=== PATIENT | female | born 1990 | race Caucasian/White ===

== ENCOUNTER 2016-06-26 02:51 | Emergency (ER) | payer MEDICAID ==
[~2016-06-26] VITALS: Ht 167.6 cm; Wt 52.6 kg
--- NOTE | 2016-06-26 03:00 | NUR ---
To bed 6 a 26 yo female bibself c/o frequent urination, dysuria x1 day. Patient is aaox4, ambulatory, afebrile. VSS. Nondiaphoretic. Initiated comfort measures. Awaiting for er md mendes.
[2016-06-26 03:49] LABS: APPEARANCE,URINE CLOUDY (CLEAR); BILIRUBIN,URINE NEGATIVE (NEGATIVE); BLOOD, URINE 3+ Ery/uL (NEGATIVE); COLOR,URINE RED (YELLOW); KETONES,URINE TRACE (NEGATIVE); LEUKOCYTE ESTERASE ,URINE 2+ (NEGATIVE); NITRITE, URINE POSITIVE (NEGATIVE); PH,URINE 5.5 (5.0-8.0); PROTEIN,URINE 3+ mg/dl (NEGATIVE); UGLUCOSE NEGATIVE (NEGATIVE)
[2016-06-26 03:56] LABS: ADD URINE CULTURE YES; BACTERIA,URINE Few /HPF (None Seen); RBC,URINE TOO NUMEROUS TO COUN /HPF (0-2); SQUAMOUS EPITHELIAL CELL,UR Few /HPF (None Seen); WBC,URINE 21-50 /HPF (0-3)
[2016-06-26 03:57] LABS: PREGNANCY TEST URINE QUAL NEGATIVE (NEGATIVE)
[2016-06-26] MEDS ORDERED: NITROFURANTOIN/NITROFURAN MAC 100 MG CAPSULE ONE (04:09)
[2016-06-26] MEDS ORDERED: PHENAZOPYRIDINE HCL 200 MG TABLET ONE (04:09)
--- NOTE | 2016-06-26 04:20 | NUR ---
Patient discharged to home in stable condition. Written and verbal after care instructions given. Patient verbalizes understanding of instruction. Patient is ambulatory with steady gait.
[2016-06-26] MEDS ORDERED: NITROFURANTOIN/NITROFURAN MAC 100 MG CAPSULE PO ONE (04:30)
[2016-06-26] MEDS ORDERED: PHENAZOPYRIDINE HCL 200 MG TABLET PO ONE (04:30)
[2016-06-26 04:40] VITALS: BP 118/68
== END 2016-06-26 04:40 | disposition home or self-care (01) ==
LOC: ER 02:51
DX: N30.90 Cystitis, unspecified without hematuria (principal); Z88.8 Allergy status to other drugs, medicaments and biological substances
CPT/HCPCS: 81000-TC; 84703-TC; 87086-TC; 87186-TC; A4606; Z7610

== ENCOUNTER 2016-10-02 22:10 | Emergency (ER) | payer MEDICAID ==
[~2016-10-02] VITALS: Ht 167.6 cm; Wt 52.2 kg
--- NOTE | 2016-10-02 22:20 | NUR ---
PT BIBSELF C/O ALLERGIC REACTION S/P TAKING COUGH MEDICINE. PT AOX3 RR EVEN AND UNLABORED. NO SOB NOTED. LUNGS SOUNDS CLEAR. PT APPEARS VERY ANXIOUS. NASAL SECRETIONS NOTED. NO NVD. PT NOT DIAPHORETIC. PT PLACED ON MONITOR. DR. RAO AT BEDSIDE FOR EVAL. PT NOTED WITH THAI EYE SWELLING AND REDNESS THROUGHOUT NECK, CHEST AND FACE.
[2016-10-02] MEDS ORDERED: EPINEPHRINE (1:1000) 1 MG/ML AMPUL ONE (22:22)
[2016-10-02] MEDS ORDERED: diphenhydrAMINE HCL 50 MG/ML VIAL ONE (22:23)
[2016-10-02] MEDS ORDERED: OXYMETAZOLINE HCL NASAL SPRAY 30 ML BOTTLE NS ONE ×2 (22:24→22:30)
[2016-10-02] MEDS ORDERED: FAMOTIDINE/PF INJ 20 MG/2 ML VIAL IV ONE ×2 (22:27→22:30)
[2016-10-02] MEDS ORDERED: diphenhydrAMINE HCL 50 MG/ML VIAL IV ONE (22:30)
[2016-10-02] MEDS ORDERED: IV NS 0.9% 1,000 ML BAG IV ONE (22:30)
[2016-10-02] MEDS ORDERED: EPINEPHRINE (1:1000) 1 MG/ML AMPUL SUBCUT ONE (22:30)
[2016-10-02] MEDS ORDERED: ALBUTEROL FS 2.5 MG/0.5 ML VIAL.NEB NEB ONE (22:30)
[2016-10-02] MEDS ORDERED: ALBUTEROL FS 2.5 MG/3 ML VIAL.NEB ONE (22:33)
--- NOTE | 2016-10-02 22:36 | NUR ---
RT AT BEDSIDE FOR BREATHING TX
--- NOTE | 2016-10-02 22:47 | NUR ---
FAMILY AT BEDSIDE
[2016-10-02] MEDS ORDERED: methylPREDNISolone SOD SUCC 125 MG/2ML VIAL ONE (23:44)
--- NOTE | 2016-10-02 23:50 | NUR ---
REDNESS AND SWELLING OF THAI EYES IMPROVED. DR. RAO INFORMED. PT DENIES SOB/CONGESTION "IM ABLE TO BREATHE"
--- NOTE | 2016-10-02 23:58 | NUR ---
IV removed. Catheter intact and site benign. Pressure and 4x4 applied to site. No bleeding noted. Patient discharged to home in stable condition. Written and verbal after care instructions given. Patient verbalizes understanding of instruction. ambulatory with a steady gait. instructed pt not to drive. pt verbalize understanding. pt accompanied by family
[2016-10-03] VITALS: BP 121/75
[2016-10-03] MEDS ORDERED: methylPREDNISolone SOD SUCC 125 MG/2ML VIAL IV ONE
== END 2016-10-03 | disposition home or self-care (01) ==
LOC: ER 22:12
DX: T50.991A Poisoning by other drugs, medicaments and biological substances, accidental (unintentional), initial encounter (principal); Z88.8 Allergy status to other drugs, medicaments and biological substances; Y92.89 Other specified places as the place of occurrence of the external cause
CPT/HCPCS: A4606; J0171; J1200; J2930; J3490; J7030; Z7610